=== PATIENT | female | born 1985 | race Caucasian/White ===

== ENCOUNTER 2020-09-23 01:49 | Emergency (ER) | payer OTHER ==
[2020-09-23] MEDS ORDERED: ZOFRAN4 MG PO (05:09)
[2020-09-23] MEDS ORDERED: OMNICEF 300 MG300 MG PO (05:09)
[2020-09-23] MEDS ORDERED: NAPROXEN500 MG PO (05:09)
== END 2020-09-23 05:15 | disposition home or self-care (01) ==
LOC: ER1 01:49
DX: N39.0 Urinary tract infection, site not specified (principal); E11.9 Type 2 diabetes mellitus without complications; J45.909 Unspecified asthma, uncomplicated; F17.210 Nicotine dependence, cigarettes, uncomplicated; Z90.49 Acquired absence of other specified parts of digestive tract; Z79.899 Other long term (current) drug therapy
CPT/HCPCS: 70450; 81001; 84703; 96372; 96374; 99284; J2765

== ENCOUNTER 2021-02-20 15:01 | Emergency (ER) | payer OTHER ==
[~2021-02-20 15:01] MED LIST: NAPROXEN500 MG PO; OMNICEF 300 MG300 MG PO; ZOFRAN4 MG PO
[2021-02-20 18:17] LABS: ADENOVIRUS F 40/41 Not Detected (Negative); ASTROVIRUS Not Detected (Negative); CAMPYLOBACTER Not Detected (Negative); CLOSTRIDIUM DIFFICILE TOX A/B Not Detected (Negative); E.COLI 0157 Not Detected (Negative); ENTAMOEBA HISTOLYTICA Not Detected (Negative); ENTEROAGGREGATIVE E.COLI (EAEC Not Detected (Negative); ENTEROPATHOGENIC E.COLI (EPEC) Not Detected (Negative); ENTEROTOXIGENIC E.COLI (ETEC) Not Detected (Negative); GIARDIA LAMBLIA Not Detected (Negative); NOROVIRUS GI/GII Not Detected (Negative); PLESIOMONAS SHIGELLOIDES Not Detected (Negative); ROTOVIRUS A Not Detected (Negative); SALMONELLA Not Detected (Negative); SAPOVIRUS Not Detected (Negative); SHIG/ENTEROINVAS.ECOLI (EIEC) Not Detected (Negative); SHIGA-LIK TOX.PRO.E.COLI (STEC Not Detected (Negative); VIBRIO Not Detected (Negative); VIBRIO CHOLERAE Not Detected (Negative); YERSINIA ENTEROCOLITICA Not Detected (Negative)
[2021-02-20 18:29] LABS: HEMOGLOBIN 11.5 gm/dl (12.3-15.3); RED BLOOD COUNT 5.11 M/UL (4.00-5.10); WHITE BLOOD COUNT 10.1 K/UL (4.5-11.0)
[2021-02-20] MEDS ORDERED: LEVOFLOXACIN500 MG PO (21:48)
[2021-02-20] MEDS ORDERED: PHENERGAN 25 MG25 M1 PO (22:08)
[2021-02-21 08:30] LABS: CRYPTOSPORIDIUM DETECTED (Negative)
== END 2021-02-20 22:05 | disposition home or self-care (01) ==
LOC: ER1 15:01
PROVIDERS: Physician Assistant
DX: N39.0 Urinary tract infection, site not specified (principal); R19.7 Diarrhea, unspecified; E11.9 Type 2 diabetes mellitus without complications; Z20.822 Contact with and (suspected) exposure to COVID-19; Z79.4 Long term (current) use of insulin; J44.9 Chronic obstructive pulmonary disease, unspecified; F17.200 Nicotine dependence, unspecified, uncomplicated
CPT/HCPCS: 80053; 81001; 83605; 83735; 84100; 84703; 85025; 87507; 96374; 99284; J2405; J7030; Q9967; U0002